=== PATIENT | female | born 1980 | race Caucasian/White ===

== ENCOUNTER 2023-10-13 11:24 | Emergency (ER) | payer BC, SELFPAY ==
[2023-10-13] VITALS (17 sets, daily range): BP systolic 111–175; BP diastolic 56–105; PULSE 61–90; RESP 12–16; TEMP 35.8; O2SAT 96–100
[2023-10-13] MEDS: diazePAM 10 MG/2 ML SYR 5 MG IVP ×2 (12:20→15:12)
--- NOTE | 2023-10-13 12:22 | ED.GENADUL_ITS ---
HPI General Date/Time Provider Initiated Documentation: 10/13/23 11:30 . HPI Narrative: This 43-year-old female presents with report of neck pain started approximately 4 days ago. She states she thought it was a headache initially but is presenting differently and she has had headaches for approximately 12 years now. She is taking her prescribed migraine medications without alleviation in her symptoms. She states it significantly worse with palpation over SCM and with ranging of her neck. She denies any fever or chills. She denies any vision change or dizziness. She states that is only on the right side of her head and neck. She denies any traumatic injuries or neck manipulations, she has had approximately 14 additional hours of work over the past 2 weeks and is wondering if maybe this is precipitated her symptoms. She denies any vision change, strength or sensation change, carbon oxide exposure, or chance of . Related Data Home Medications Medication Instructions Recorded Confirmed acetaminophen 500 mg capsule 1,000 mg PO TID PRN 10/13/23 10/13/23 bupropion HCl 150 mg tablet,12 hr 150 mg PO DAILY 10/13/23 10/13/23 sustained-release (Wellbutrin SR) cholecalciferol (vitamin D3) 10 5,000 mcg PO DAILY 10/13/23 10/13/23 mcg (400 unit) capsule (Vitamin D3) cyclobenzaprine 10 mg tablet 10 mg PO TID PRN 10/13/23 10/13/23 diazepam 5 mg tablet (Valium) 5 mg PO TID PRN #10 tabs 10/13/23 fluticasone propionate 50 1 spray intranasal DAILY PRN 10/13/23 10/13/23 mcg/actuation nasal spray,suspension (Flonase Allergy Relief) fremanezumab-vfrm 225 mg/1.5 mL 225 mg subcut QMONTH 10/13/23 10/13/23 subcutaneous auto-injector (Ajovy) ibuprofen 600 mg tablet (IBU) 600 mg PO Q8H 10/13/23 10/13/23 midodrine 2.5 mg tablet 2.5 mg PO QID 10/13/23 10/13/23 multivitamin with iron (Daily 1 tab PO DAILY 10/13/23 10/13/23 Multiple Vitamins with Iron tablet) omeprazole 40 mg capsule,delayed 40 mg PO BID 10/13/23 10/13/23 release ondansetron HCl 4 mg tablet 4 mg PO Q8H 10/13/23 10/13/23 pregabalin 100 mg capsule (Lyrica) 100 mg PO DAILY 10/13/23 10/13/23 rimegepant 75 mg disintegrating 75 mg PO ONCE PRN 10/13/23 10/13/23 tablet (Nurtec ODT) Previous Rx's Medication Instructions Recorded diazepam 5 mg tablet (Valium) 5 mg PO TID PRN #10 tabs 10/13/23 Allergies Allergy/AdvReac Type Severity Reaction Status Date / Time Penicillins Allergy Severe Anaphylaxis Verified 10/13/23 11:37 shellfish derived Allergy Mild Skin Rash Verified 10/13/23 11:37 sulfamethoxazole Allergy Mild Skin Rash Verified 10/13/23 11:37 [From Bactrim] trimethoprim [From Bactrim] Allergy Mild Skin Rash Verified 10/13/23 11:37 codeine AdvReac Intermediate Other (See Verified 10/13/23 11:37 Comment) hydromorphone AdvReac Intermediate Nausea Verified 10/13/23 11:37 modafinil AdvReac Intermediate Other (See Verified 10/13/23 11:37 Comment) prochlorperazine AdvReac Intermediate Other (See Verified 10/13/23 11:37 [From Compazine] Comment) General Stated Complaint: Headache LIZZY: 3 Course Vital Signs Vital signs: Vital Signs Temperature 35.8 C L 10/13/23 11:28 Pulse 77 10/13/23 11:28 Respiratory Rate 12 10/13/23 11:28 Blood Pressure 175/105 H 10/13/23 11:28 Pulse Oximetry 99 10/13/23 11:28 Temperature 35.8 C L 10/13/23 11:34 Temperature Source Temporal Artery Scan 10/13/23 11:34 Pulse 77 10/13/23 11:34 Respiratory Rate 12 10/13/23 11:34 Respiratory Effort Normal, Non-Labored 10/13/23 11:32 Blood Pressure 175/105 H 10/13/23 11:34 Blood Pressure Position Sitting 10/13/23 11:34 Pulse Oximetry 99 10/13/23 11:34 Oxygen Delivery Method Room Air 10/13/23 11:34 Oxygen Flow Rate 0 10/13/23 11:34 Pain Level 7 10/13/23 11:46 Medical Decision Making This 43-year-old female presents with past medical history of Sonal-Danlos and migraine headaches, currently experiencing neck pain atypical for her previous headaches, pain starts in the posterior occipital region and radiates around to her head She denies any dizziness or constant headache, her symptoms are exacerbated with movement of her head. She denies any strength or sensation changes to her extremities or traumatic injury No carotid bruit, pupils equal round reactive to light and accommodation, no meningismus No visible sign of trauma, extraocular muscles intact, cranial nerves II through XII intact, ambulatory with steady gait, negative pronator drift, negative [id number], negative [id number], strength and sensation intact distally to all 4 extremities, vascularly intact Patient was given Valium, she has reproducible pain in the occipital region of her head She was given an occipital block for suspected occipital neuralgia and she is feeling marked improvement after Valium and bupivacaine injection, her neurological exam is benign I have low suspicion for carotid artery or vertebral artery dissection, subarachnoid hemorrhage, or any sort of ominous pathology She is requesting discharge home at this time as she feels improvement, she is given several tablets of Valium. Encouraged to follow-up with her primary care physician on Sunday for reassessment and to return immediately should she have new or worsening complaints Quality:SDOH Health Related Social Needs: No Data to Display PFSH All Active Problems (Updated 10/13/23 @ 15:38 by MOLLY Mims) Headache (Acute) Acute neck pain (Acute) Social History Smoking/Tobacco Use Status: Never Smoking risk assessment performed?: Yes Alcohol Intake: current Alcohol Intake frequency: holidays/special occasions only Drug use: Never Substance use type: does not use Housing: house Do you feel safe at home: Yes Do you feel safe in your relationship?: Yes Discharge Plan Disposition Patient Disposition: Home Discharge Details Clinical Impression: Acute neck pain, Headache Primary Care Provider: None,None ED Provider: Kelly Freedman Home Meds and New Rx's Prescriptions: New diazepam [Valium] 5 mg tablet 5 mg PO TID PRNQty: 10 0RF Continued bupropion HCl [Wellbutrin SR] 150 mg tablet sustained-release 12 hr 150 mg PO DAILY pregabalin [Lyrica] 100 mg capsule 100 mg PO DAILY omeprazole 40 mg capsule,delayed release(DR/EC) 40 mg PO BID fluticasone propionate [Flonase Allergy Relief] 50 mcg/actuation spray,suspension 1 spray intranasal DAILY PRN Rx Instructions: administer into each nostril cyclobenzaprine 10 mg tablet 10 mg PO TID PRN midodrine 2.5 mg tablet 2.5 mg PO QID Rx Instructions: do not give last dose of day after 6PM or within 4 hrs of bedtime Ajovy Autoinjector 225 mg/1.5 mL auto-injector 225 mg subcut QMONTH acetaminophen 500 mg capsule 1,000 mg PO TID PRN ibuprofen [IBU] 600 mg tablet 600 mg PO Q8H Nurtec ODT 75 mg tablet,disintegrating 75 mg PO ONCE PRN Rx Instructions: as a single dose ondansetron HCl 4 mg tablet 4 mg PO Q8H multivitamin with iron [Daily Multiple Vitamins/Iron] Tablet 1 tab PO DAILY cholecalciferol (vitamin D3) [Vitamin D3] 10 mcg (400 unit) capsule 5,000 mcg PO DAILY Discharge Instructions Instructions: General Headache (ED), Neck Pain (ED) Additional Instructions: Please take Tylenol and ibuprofen for pain control Continue on all your prescribed medications You may take Valium sparingly, this medication can be addictive, and do not operate your vehicle for 8 hours after taking this medication Do not combine this medication with alcohol Please return should you develop worsening symptoms, strength or sensation change, or for persistence of symptoms greater than 48 hours please be reassessed Discharge Data Discharge Date/Time-TO BE ENTERED AT DEPARTURE: 10/13/23 16:03
[2023-10-13] MEDS: Ketorolac 15 MG/ML VIAL 7.5 MG IVP (12:33)
[2023-10-13 12:37] LABS: Abs Immature Grans 0.01 10^3/uL (0.0-0.06); Absolute Basophil Count 0.06 10^3/uL (0.0-0.2); Absolute Eosinophil Count 0.11 10^3/uL (0.0-0.7); Absolute Lymphocyte Count 1.61 10^3/uL (1.2-3.4); Absolute Monocyte Count 0.43 10^3/uL (0.1-0.8); Eosinophils % 1.9; HCT 34.7 % (36.0-46.0); HGB 11.1 g/dL (11.2-15.7); Immature Grans % 0.2; Lymphocytes % 27.7; MCH 29.4 pg (27.0-33.0); MCV 92 fL (80-95); MPV 8.9 fL (8.0-11.0); Monocytes % 7.4; Neutrophils % 61.8; Platelet Count 263 10^3/uL (130-400); RBC 3.78 10^6/uL (3.93-5.22); RDW 13.3 % (11.7-14.6); RDW-SD 44.4 fL; WBC 5.82 10^3/uL (4.4-10.8)
[2023-10-13 12:46] LABS: Anion Gap 7.7 mmol/L (3-11); BUN 16 mg/dL (7-18); CO2 29.3 mmol/L (21.0-32.0); Calcium 8.8 mg/dL (8.5-10.1); Chloride 105 mmol/L (98-107); Estimated GFR 71.69 (mL/min/1.73m2); Glucose 140 mg/dL (74-106); Potassium 4.1 mmol/L (3.5-5.1); Sodium 142 mmol/L (136-145)
[2023-10-13] MEDS: Bupivacaine 0.5% Pres-Free 30 ML VIAL (14:03)
== END 2023-10-13 16:03 | disposition home or self-care (01) ==
PROVIDERS: Emergency Provider Physician Assistant
DX: M54.2 Cervicalgia (principal); Q79.60 Ehlers-Danlos syndrome, unspecified
CPT/HCPCS: 64405; 80048; 96374; 96375; 96376; 99284; 85025; J0665; J1885; J3360

== ENCOUNTER 2024-11-26 15:57 | Emergency (ER) | payer BC, OTHER, SELFPAY ==
[2024-11-26 16:00] VITALS: BP 144/95; PULSE 73; RESP 15; TEMP 36.8; O2SAT 100
--- NOTE | 2024-11-26 16:00 | DI.RAD_ITS ---
Exam(s) XR SACRUM COCCYX EXAM: XR SACRUM COCCYX CLINICAL HISTORY: Fall 1 week ago. TECHNIQUE: 2D digital imaging was performed. COMPARISON: No exams were available for comparison FINDINGS: 3 views There is no obvious sacral fracture nor obvious coccyx fracture. There is chronic disc space narrowing at L5-S1 level. No listhesis evident at this level. Sacroilia c joints appear unremarkable. IMPRESSION: No obvious fractures in the sacrum and coccyx. If symptoms persist than follow-up CT or MRI can be performed. These imaging studies will sometimes reveal fractures which are not evident on plain films. DATA REPOSITORY: RADIATION DOSE DELIVERED:
--- NOTE | 2024-11-26 16:10 | DI.RAD_ITS ---
Exam(s) XR LUMBAR SPINE COMPLETE EXAM: XR LUMBAR SPINE COMPLETE CLINICAL HISTORY: Fall 1 week ago. TECHNIQUE: 2D digital imaging was performed. COMPARISON: No exams were available for comparison FINDINGS: Five views No evidence fracture, listhesis, nor pars interarticularis defects. There is significant narrowing o f the L5-S1 disc space. Other disc spaces exhibit normal height. There is minimal facet degenerativ e change. There is no scoliosis. Sacroiliac joints appear unremarkable. IMPRESSION: Chronic disc space narrowing L5-S1. No other significant osseous findings DATA REPOSITORY: RADIATION DOSE DELIVERED:
--- NOTE | 2024-11-26 16:11 | W.ED.GENAD ---
Discharge Plan Disposition Patient Disposition: Home Condition: Stable Discharge Details Clinical Impression: Fall (on) (from) other stairs and steps, initial encounter, Lumbago Primary Care Provider: Josafat Gibson ED Provider: Ashley Jordan Home Meds and New Rx's Prescriptions: New lidocaine 5 % adhesive patch,medicated 1 patch topical DAILY Qty: 15 0RF Rx Instructions: leave on most painful area for up to 12 hrs Continued bupropion HCl [Wellbutrin SR] 150 mg tablet sustained-release 12 hr 150 mg PO DAILY pregabalin [Lyrica] 100 mg capsule 100 mg PO DAILY omeprazole 40 mg capsule,delayed release(DR/EC) 40 mg PO BID fluticasone propionate [Flonase Allergy Relief] 50 mcg/actuation spray,suspension 1 spray intranasal DAILY PRN Rx Instructions: administer into each nostril cyclobenzaprine 10 mg tablet 10 mg PO TID PRN midodrine 2.5 mg tablet 2.5 mg PO QID Rx Instructions: do not give last dose of day after 6PM or within 4 hrs of bedtime Ajovy Autoinjector 225 mg/1.5 mL auto-injector 225 mg subcut QMONTH acetaminophen 500 mg capsule 1,000 mg PO TID PRN ibuprofen [IBU] 600 mg tablet 600 mg PO Q8H Nurtec ODT 75 mg tablet,disintegrating 75 mg PO ONCE PRN Rx Instructions: as a single dose ondansetron HCl 4 mg tablet 4 mg PO Q8H multivitamin with iron [Daily Multiple Vitamins/Iron] Tablet 1 tab PO DAILY cholecalciferol (vitamin D3) [Vitamin D3] 10 mcg (400 unit) capsule 5,000 mcg PO DAILY diazepam [Valium] 5 mg tablet 5 mg PO TID PRNQty: 10 0RF Discharge Instructions Instructions: Low Back Pain ED Additional Instructions: At this time x-rays show no acute fracture to your lower back your coccyx or sacrum. You do have some disc narrowing and L5-S1. However if symptoms persist you may follow-up with your primary care provider and request a CT. Usually if the coccyx is broken it just has to heal on its own. Please take Tylenol or Ibuprofen with food every 4-6 hours as needed for pain and swelling. Alternate ice and heat. Use the lidocaine patches as directed. Follow up with primary care provider in 3-5 days. Return to ED sooner if any worsening or concerns. Thank you for allowing us to care for you today. Referrals: Josafat Gibson MD [Primary Care Provider] - 1 week HPI General Mode of arrival: ambulatory. Date/Time Provider Initiated Documentation: 11/26/24 16:07. Limitations to Documentation: no limitations. Information obtained by: patient, RN notes reviewed and old records reviewed. HPI Narrative: 44 year old female presents with coccyx and lower lumbar pain after a mechanical fall 6 days ago patient reports that she slipped landing on her bottom and went down 4-5 stairs. She does have a history of a L4-L5 herniation and degenerative disc disorder. She is complaining of lower back and coccyx pain she has been taking Tylenol ibuprofen just ibuprofen prior to arrival denies any loss of bowel or bladder control and no numbness tingling or neurologic symptoms. Denies any history of back surgery. She does have a past medical history of obesity, GERD, back pain. She has been taking Benadryl with little to no relief. Related Data Home Medications ?Medication ?Instructions ?Recorded ?Confirmed acetaminophen 500 mg capsule 1,000 mg PO TID PRN 10/13/23 11/26/24 bupropion HCl 150 mg tablet,12 hr 150 mg PO DAILY 10/13/23 11/26/24 sustained-release (Wellbutrin SR) cholecalciferol (vitamin D3) 10 5,000 mcg PO DAILY 10/13/23 11/26/24 mcg (400 unit) capsule (Vitamin D3) cyclobenzaprine 10 mg tablet 10 mg PO TID PRN 10/13/23 11/26/24 diazepam 5 mg tablet (Valium) 5 mg PO TID PRN #10 tabs 10/13/23 11/26/24 fluticasone propionate 50 1 spray intranasal DAILY PRN 10/13/23 11/26/24 mcg/actuation nasal spray,suspension (Flonase Allergy Relief) fremanezumab-vfrm 225 mg/1.5 mL 225 mg subcut QMONTH 10/13/23 11/26/24 subcutaneous auto-injector (Ajovy) ibuprofen 600 mg tablet (IBU) 600 mg PO Q8H 10/13/23 11/26/24 midodrine 2.5 mg tablet 2.5 mg PO QID 10/13/23 11/26/24 multivitamin with iron (Daily 1 tab PO DAILY 10/13/23 11/26/24 Multiple Vitamins with Iron tablet) omeprazole 40 mg capsule,delayed 40 mg PO BID 10/13/23 11/26/24 release ondansetron HCl 4 mg tablet 4 mg PO Q8H 10/13/23 11/26/24 pregabalin 100 mg capsule (Lyrica) 100 mg PO DAILY 10/13/23 11/26/24 rimegepant 75 mg disintegrating 75 mg PO ONCE PRN 10/13/23 11/26/24 tablet (Nurtec ODT) lidocaine 5 % topical patch 1 patch topical DAILY #15 ea 11/26/24 Previous Rx's ?Medication ?Instructions ?Recorded diazepam 5 mg tablet (Valium) 5 mg PO TID PRN #10 tabs 10/13/23 lidocaine 5 % topical patch 1 patch topical DAILY #15 ea 11/26/24 Allergies Allergy/AdvReac Type Severity Reaction Status Date / Time Penicillins Allergy Severe Anaphylaxis Verified 11/26/24 16:04 shellfish derived Allergy Mild Skin Rash Verified 11/26/24 16:04 sulfamethoxazole (From Allergy Mild Skin Rash Verified 11/26/24 16:04 Bactrim) trimethoprim (From Bactrim) Allergy Mild Skin Rash Verified 11/26/24 16:04 codeine AdvReac Intermediate Other (See Verified 11/26/24 16:04 Comment) hydromorphone AdvReac Intermediate Nausea Verified 11/26/24 16:04 modafinil AdvReac Intermediate Other (See Verified 11/26/24 16:04 Comment) prochlorperazine (From AdvReac Intermediate Other (See Verified 11/26/24 16:04 Compazine) Comment) General Stated Complaint: Orthopedic LIZZY: 4 Review of Systems All systems reviewed & are unremarkable except as noted in HPI and below Musculoskeletal Musculoskeletal: Reports as per HPI, Reports back pain, Denies numbness and Denies tingling Neurologic Neurologic: Denies numbness and Denies tingling Exam Narrative Exam Narrative: Constitutional: Alert and oriented x3. Appears stated age. Normal body habitus. Head: Normocephalic, no trauma. Eyes: Pupils PERRL, Red reflex noted, EOM's intact. Eyelids symmetrical without lesions, discharge, or swelling. ENT: Bilateral TM's WNL, External ear normal to inspection, no mastoid TTP, swelling, or erythema, Nasal turbinates WNL, no nasal discharge. Normal dentition, Posterior pharynx WNL, no exudate. Chest: RRR, Normal S1, S2, distal pulses intact. Resp: Lungs clear to auscultation bilaterally, no wheezes, rales, or rhonchi. Abdomen: Soft, non-distended, Normoactive bowel sounds all 4 quads. Musculoskeletal: Normal gait, Moves all 4 extremities without difficulty. Does have some midline tenderness in the L-spine and sacrum. Skin: No suspicious rashes or lesions. Capillary refill less than 2 sec. Neurologic: Cranial nerves II-XII intact. Alert and oriented x 3. Motor: No deficits noted. Sensory: Intact bilaterally all 4 extremities. Hematologic/Lymphatic: No ecchymosis, no lymphadenopathy. Course Vital Signs Vital signs: Vital Signs Temperature 36.8 C 11/26/24 16:00 Pulse 73 11/26/24 16:00 Respiratory Rate 15 11/26/24 16:00 Blood Pressure 144/95 H 11/26/24 16:00 Pulse Oximetry 100 11/26/24 16:00 Temperature 36.8 C 11/26/24 16:00 Pulse 73 11/26/24 16:00 Respiratory Rate 15 11/26/24 16:00 Blood Pressure 144/95 H 11/26/24 16:00 Blood Pressure Position Sitting 11/26/24 16:00 Pulse Oximetry 100 11/26/24 16:00 Oxygen Delivery Method Room Air 11/26/24 16:00 Oxygen Flow Rate 0 11/26/24 16:00 Medical Decision Making 44 year old female presents with coccyx and lower lumbar pain after a mechanical fall 6 days ago patient reports that she slipped landing on her bottom and went down 4-5 stairs. She does have a history of a L4-L5 herniation and degenerative disc disorder. She is complaining of lower back and coccyx pain she has been taking Tylenol ibuprofen just ibuprofen prior to arrival denies any loss of bowel or bladder control and no numbness tingling or neurologic symptoms. Denies any history of back surgery. She does have a past medical history of obesity, GERD, back pain. She has been taking Benadryl with little to no relief. X-ray L-spine and coccyx and sacrum ordered. I did offer some analgesics the patient declined at this time. No obvious acute fractures noted to the L-spine or sacrum or coccyx if symptoms persist I will encourage patient to have CT imaging through her PCP. Will give lidocaine patch here in the department. Patient ambulated without difficulty after discharge. Blood pressure elevated. Patient is nonsymptomatic at this time. Discussed home care strict return instructions verbalized understanding. This text was generated using [employer] dictation system, please disregard any oddities of phrase or misspellings. Medical Records Medical records reviewed: Yes I reviewed the patient's medical records. Imaging Data Radiologic Study: Imaging: X-Ray Radiologist's impression: EXAM: XR SACRUM COCCYX CLINICAL HISTORY: Fall 1 week ago. TECHNIQUE: 2D digital imaging was performed. COMPARISON: No exams were available for comparison FINDINGS: 3 views There is no obvious sacral fracture nor obvious coccyx fracture. There is chronic disc space narrowing at L5-S1 level. No listhesis evident at this level. Sacroiliac joints appear unremarkable. IMPRESSION: No obvious fractures in the sacrum and coccyx. If symptoms persist than follow-up CT or MRI can be performed. These imaging studies will sometimes reveal fractures which are not evident on plain films. Quality:SDOH Health Related Social Needs: No Data to Display PFSH All Active Problems (Updated 11/26/24 @ 17:16 by Ashley Jordan NP) Lumbago (Acute) Fall (on) (from) other stairs and steps, initial encounter (Acute) Social History Smoking/Tobacco Use Status: Never Smoking risk assessment performed?: Yes Alcohol Intake: current Alcohol Intake frequency: holidays/special occasions only Drug use: Never Substance use type: does not use Housing: house Do you feel safe at home: Yes Do you feel safe in your relationship?: Yes
[2024-11-26] MEDS: Lidocaine 5% Patch 1 PATCH TP (17:20)
[2024-11-26 17:31] VITALS: BP 130/109; PULSE 74; RESP 14; TEMP 36.6; O2SAT 95
== END 2024-11-26 17:45 | disposition home or self-care (01) ==
PROVIDERS: Emergency Provider Registered Nurse Emergency; PCP Family Medicine
DX: M54.50 Low back pain, unspecified (principal); W10.8XXA Fall (on) (from) other stairs and steps, initial encounter
CPT/HCPCS: 99284; 72110; 72220; 99283